=== PATIENT | female | born 1980 | race Caucasian/White ===

== ENCOUNTER 2017-03-20 11:00 | Inpatient (IN) | payer OTHER ==
[~2017-03-20] VITALS: Ht 149.9 cm; Wt 68.9 kg
--- NOTE | ~2017-03-20 | DS ---
Unit #: [id number] #: [id number] Patient: DENITA PORTILLO [id number] [place] [address] [id number] MR#: [id number] NAME: DENITA PORTILLO ROOM: [facility] Age: 36 Sex: F Admission Date: 03/20/2017 : 1980 Discharge Date: 03/24/2017 Attending Physician: Mike Donato M.D. Primary Care Physician: No Primary Care Physician DISCHARGE SUMMARY REASON FOR ADMISSION Denita is a 36-year-old woman who reported a history of benzodiazepine abuse, IV drug use and increasing hopelessness and helplessness with multiple psychosocial dysfunctions. She had suicidal ideation, but no specific plan, and was admitted for stabilization. LABORATORY DATA Beta ECG was negative. Other laboratory studies within normal limits. HOSPITAL COURSE Patient was admitted and placed on the benzodiazepine detox protocol. She did not require initiation of antidepressant medication and declined to participate in psychotherapy groups and activities. She was agreeable to discharge to the outpatient program, but would not commit to further followup. DISCHARGE DIAGNOSIS AXIS I: Benzodiazepine dependence, polysubstance dependence. AXIS II: No diagnosis. Bruce III: History of hepatitis C, reported history of HIV, history withdrawal seizures, history of hypertension, reported history of MS. INSTRUCTIONS Instructed the patient to follow up with [facility] IOP and primary care doctor. DISCHARGE MEDICATIONS None. CONDITION ON DISCHARGE Fair. PROGNOSIS Fair. DIET AND ACTIVITY Ad olga lidia. Dictated by... Mike Donato M.D. MRH/gz TD: 04/23/2017 07:51 Unit #: [id number] #: [id number] Patient: DENITA PORTILLO JOB #: [id number] DISCHARGE SUMMARY Page 1 of 1 X Mike Donato MD X DISCHARGE SUMMARY
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
--- NOTE | ~2017-03-20 | HP ---
Unit #: [id number] #: [id number] Patient: DENITA PORTILLO [id number] [place] [address] [id number] I MR#: [id number] NAME: DENITA PORTILLO ROOM: P176 Age: 36 Sex: F Admission Date: 03/20/2017 : 1980 Attending Physician: Mike Donato M.D. Admitting Physician: Mike Donato M.D. Primary Care Physician: Primary Care Physician No HISTORY AND PHYSICAL HISTORY OF PRESENT ILLNESS Denita is a 36 year old admitted to [facility] because of her poly-illicit substance abuse. PAST MEDICAL HISTORY 1. History of illicit substance abuse to include IV drugs. 2. Hepatitis C. PAST SURGICAL HISTORY Nothing reported. ALLERGIES Tylenol. SOCIAL HISTORY Smokes 1 pack per day. Drinks alcohol rarely. Admits to a long history of illicit substance abuse to include IV drugs. FAMILY HISTORY Medically noncontributory. REVIEW OF SYSTEMS She refuses to answer any questions. There are no reports of nausea, vomiting or diarrhea. She has had no cough or increased temperature. CURRENT MEDICATIONS Detox protocol. PHYSICAL EXAMINATION GENERAL: Alert, well-nourished, in no apparent distress. VITAL SIGNS: Blood pressure 122/84, heart rate 62, respirations 16, temperature 98.6. WEIGHT: 152. HEIGHT: 4 feet 11 inches. SKIN: Warm and dry without rash or lesion. HEENT: Normocephalic. TMs not viewed. Oral and nasal passages clear. Conjunctivae clear. PERRLA. EOMs intact. NECK: Supple without lymphadenopathy or thyromegaly. HEART: Regular rate and rhythm without murmur. LUNGS: Clear. ABDOMEN: Soft, nontender. : Not done. EXTREMITIES: No evidence of cyanosis, clubbing or edema. Moves all Unit #: [id number] #: [id number] Patient: DENITA PORTILLO without focal deficit. NEUROLOGICAL: Grossly within normal limits. Cranial Nerves: II: Visual yuen are intact. III, IV AND : Extraocular movements are intact. Pupils are equal, round and reactive to light. V: Facial sensation is grossly normal. VII: Facial movements and expression are normal. VIII: Auditory acuity grossly intact. IX, X: Uvula is midline. Phonation is normal. XI: Patient shrugs shoulders and turns head normally. XII: Tongue protrudes in the midline. Sensory and Motor Function: Sensory and motor sensation is grossly normal. Motor: moves all extremities well. Coordination: Gait is normal. Deep Tendon Reflexes: Intact. IMPRESSION Psychiatric admission. RECOMMENDATIONS PSYCHIATRIC: Per psychiatrist. MEDICAL: See no contraindication to participate in facility's activities. MEDICAL PROGNOSIS Good. MEDICAL CONDITION Stable. Dictated by... Juju CrawfordATamia. for Morris Robertson/darin TD: 03/21/2017 21:04 JOB #: [id number] HISTORY AND PHYSICAL Page 1 of 1 X Brenda Yancey X HISTORY AND PHYSICAL
[2017-03-21 10:28] LABS: BASOPHIL% 0.2 % (0-2.5); EOSINOPHIL# 0.1 X10e3 (0-0.7); EOSINOPHIL% 0.8 % (0.0-7.0); HEMATOCRIT 43.4 % (35.0-45.0); HEMOGLOBIN 14.4 gm/dL (12.0-16.0); LYMPHOCYTE# 1.3 X10e3 (1.0-3.5); LYMPHOCYTE% 20.8 % (17.0-45.0); MEAN CORPUSCULAR HEMOGLOBIN 31.1 PG (28-34); MEAN CORPUSCULAR HGB CONC 33.1 g/dL (30-36); MONOCYTE# 0.6 X10e3 (0-1.0); NEUTROPHIL# 4.5 X10e3 (1.5-7.1); NEUTROPHIL% 69.2 % (40-75); PLATELET COUNT 153 X10e3 (140-420); RED BLOOD COUNT 4.62 X10e (3.90-5.30); RED CELL DISTRIBUTION WIDTH 13.9 % (11.0-15.5); WHITE BLOOD COUNT 6.5 X10e3 (4.0-10.5)
[2017-03-21 10:39] LABS: DIFF IND NO
[2017-03-21 10:53] LABS: ALBUMIN SERUM 3.5 g/dL (3.5-5.0); BILIRUBIN,TOTAL 0.7 mg/dL (0.2-2.0); BUN/CREATININE RATIO 16.36; CALCIUM SERUM 9.4 mg/dL (8.4-10.2); CREATININE SERUM 1.1 mg/dL (0.6-1.4); GLOM FILT RATE Estimated 64.6 mL/min (>60); POTASSIUM 3.9 mmol/L (3.5-5.1); PROTEIN TOTAL SERUM 7.9 g/dL (6.0-8.3)
== END 2017-03-24 13:10 | DRG 897 ==
LOC: P1E 17:47
PROVIDERS: Psychiatry & Neurology Psychiatry
PROC: HZ2ZZZZ Detoxification Services for Substance Abuse Treatment (ICD-10-PCS; principal; 2017-03-20)
DX: F13.230 Sedative, hypnotic or anxiolytic dependence with withdrawal, uncomplicated (principal); G35 Multiple sclerosis; I10 Essential (primary) hypertension; F17.210 Nicotine dependence, cigarettes, uncomplicated; F19.24 Other psychoactive substance dependence with psychoactive substance-induced mood disorder; Z21 Asymptomatic human immunodeficiency virus [HIV] infection status; B19.20 Unspecified viral hepatitis C without hepatic coma
CPT/HCPCS: 80053; 84703; 85025